=== PATIENT | male | born 1955 | race Caucasian/White ===

== ENCOUNTER 2016-11-22 19:46 | Inpatient (IN) | payer OTHER ==
[~2016-11-22] VITALS: Ht 182.9 cm; Wt 83.6 kg
[2016-11-22 20:05] VITALS: BP 114/60; PULSE 103; RESP 18; O2SAT 99
[2016-11-22 21:55] LABS: BASOPHILS % (AUTO) 0.2 % (0-3); EOSINOPHILS % (AUTO) 0 % (0-5); MONOCYTES % (AUTO) 3.3 % (4-12); Mean Corpuscular Hemoglobin 30.9 pg (27.0-35.0); NEUTROPHILS % (AUTO) 91.6 % (40-74); Platelet Count 262 bil/L (150-400)
--- NOTE | 2016-11-22 22:04 | ED.REPORT ---
HPI-General Illness Date of Service Nov 22, 2016 ED Provider: Jamarcus Metzger DO A 61 year old male with a history of diabetes presents to the ED accompanied by his with diarrhea onset two days ago. Associated symptoms include nausea, vomiting, shakiness, chills, dizziness, weakness, and confusion. His blood sugar was 450 at 0900 at Urgent Care today. The patient recently began taking new medication for his prostate, which has caused diarrhea in the past. He denies cough or pain currently. Nursing Notes Stated Complaint: DIABETIC/ DIZZINESS Chief Complaint: General Complaint Nursing Notes Reviewed: Yes Allergies: Coded Allergies: Sulfa (Sulfonamide Antibiotics) (Verified Allergy, Unknown, 11/22/16) Scheduled Arginine (Arginine) 500 Mg Tablet 500 MG PO DAILY Aspirin (Aspirin) 81 Mg Tablet 243 MG PO DAILY Astragalus Root (Astragalus Root) 1 Gm Powder 1 GM MC DAILY Insulin Glargine (Lantus U100 Insulin Vial) 100 Unit/Ml Vial 15-20 UNIT SUBQ HS Insulin Lispro (HumaLOG U100 Insulin Pen) 100 Unit/1 Ml Insuln.pen 15-20 UNIT SUBQ ACHS Blood Sugar Lispro Correction <151 0 units 151-175 1 unit 176-200 2 units 201-225 3 units 226-250 4 units 251-275 5 units 276-300 6 units 301-325 7 units 326-350 8 units 351-375 9 units 376-400 10 units >400 12 units Check blood sugars before meals and at bedtime. Use correction factor only before meals. General Time Seen by MD: 21:42 Chief Complaint Diarrhea Hx Obtained From: Patient Arrived By: Walk-in Sudden in Onset?: Yes Onset Occurred: 2 days ago Symptom Duration: Since onset Severity: Current: No pain currently Severity: Maximum: No pain Associated with: Reports: Nausea, Vomiting, Denies: Fever Pertinent Negative: Relieved by nothing Context Related History: Reports Diabetes mellitus Recent Healthcare: No recent doctor visit Similar Sx Previous: Yes Past Medical History Past Medical History Diabetes type 1 Past Surgical History Right hip surgery Smoking History Unknown if Ever Smoker Social History Other Social History: Good social support, Ambulatory Status Independent Review of Systems Full Review of Systems Constitutional: Reports: Chills, Denies: Fever Respiratory: Denies: Non-productive cough GI: Reports: Diarrhea, Nausea, Vomiting Neurologic: Reports: Confusion, Dizziness, Shaking, Weakness Complete sys rev & neg: except as marked. Physical Exam Vital Signs Vital Signs Date Time Temp Pulse Resp B/P Pulse Ox O2 Delivery O2 Flow Rate FiO2 11/23/16 04:29 36.7 88 17 103/59 100 Room Air 11/23/16 03:56 36.3 93 18 107/53 98 Room Air 11/23/16 01:04 98 16 113/58 98 Room Air 11/22/16 20:05 36.9 103 18 114/60 99 Initial VS: Reviewed Head / Eyes: Atraumatic, Normocephalic Neck: Supple, Full range of motion Respiratory: Breath sounds normal, Clear to auscultation, No respiratory distress Cardiovascular: Regular rate & rhythm, Heart sounds normal Skin: Warm, Dry, No cyanosis Neurologic: Alert, Oriented, Nonfocal Psychiatric: Mood/affect normal, Behavior normal, Normal thought content General/Constitutional: Awake, Alert, No acute distress ENT: Airway patent Mouth: Positive: Mucous membranes dry Interpretation & Diagnostics Lab Results Interpretation Result Diagram: 11/23/16 0500 11/23/16 1350 Test 11/22/16 21:20 11/22/16 23:54 11/23/16 04:01 Total Bilirubin 0.8mg/dL (0.0-1.2) Aspartate Amino Transf (AST/SGOT) 35U/L (0-50) Alanine Aminotransferase (ALT/SGPT) 44U/L (0-44) Alkaline Phosphatase 192U/L (25-160) Troponin T < 0.010ug/L (0.0-0.011) Total Protein 7.8g/dL (6.4-8.4) Albumin 3.8g/dL (3.4-5.0) Urine Color Yellow (YELLOW) Urine Appearance Clear (CLEAR,HAZY) Urine pH 5.5 (5.0-8.0) Urine Specific [place] 1.020 (1.003-1.035) Urine Protein Negativemg/dL (NEG,TRACE) Urine Glucose (UA) >1000mg/dL (NEGATIVE) Urine Ketones >80mg/dL (NEGATIVE) Urine Occult Blood Negative (NEGATIVE) Urine Nitrite Negative (NEGATIVE) Urine Bilirubin Negative (NEGATIVE) Urine Urobilinogen Normalmg/dL (NORMAL) Urine Leukocyte Esterase Negative (NEGATIVE) Urine RBC 0-2/hpf (0-2) Urine WBC 0-5/hpf (0-5) Urine Epithelial Cells Few/hpf (NONE-MOD) Urine Crystals None seen (NONE SEEN) Urine Bacteria Few/hpf (NONE-FEW) Urine Hyaline Casts None/lpf (NONE) Urine Granular Casts None seen (NONE SEEN) Urine Waxy Casts None seen (NONE SEEN) Urine Red Blood Cell Casts None seen (NONE SEEN) Urine White Blood Cell Casts None seen (NONE SEEN) Urine Mucus None seen (None Seen) Urine Trichomonas None seen (NONE SEEN) Urine Yeast None (NONE SEEN) Urinalysis Comment None Urine Culture Reflexed Not indicated Ketones 1:8 ECG Interpretation ECG Interpretation: Sinus rhythm rate 99 Prolonged QT interval Nonspecific ST changes Time: 22:25 Interpreted by: ED physician X-Ray Chest Interpretation Chest Xray Interpretation: Normal chest x-ray View: Portable, 1 view Interpretation / Wet Read by: Wet read ED physician Re-Eval/Medical Decision Med Decision/Clinical Course 61-year-old insulin-dependent diabetic presents with diarrhea and dehydration. He has had diarrhea for a couple of daysjust not felt well. On examination he was clinically dry. He was found to have hyperglycemia with an anion gap and no ketosis. He was fluid resuscitated and his lactic acid improved. His anion gap however worse and so therefore he was started on IV insulin as well as continue fluids. Stool studies have been sent down. I am suspicious for possible C. difficile results of this in the morning. Case discussed with our hospitalist and Felix was accepted for admission. Time of Eval: 02:54 Patient Status: Condition improved Re-Evaluation/Progress Note: Discussed with patient x-ray results, diagnosis, and plan for admit. Patient agrees with plan for care and all questions were addressed. Consultation #1: Referral / Consult Name: Shayy Moya MD Consulted With: Hospitalist Call Returned at: 01:54 Licensed Tax Consultant: Agrees with eval, Agrees with plan Note: Will admit if blood sugars remain elevated. Consultation #2: Referral / Consult Name: Shayy Moya MD Consulted With: Hospitalist Call Returned at: 03:03 Licensed Tax Consultant: Agrees with eval, Agrees with plan, Accepts admit Note: Discussed lab results Counseled Regarding: Diagnosis, Need for admission Discharge & Departure Primary Impression: Diarrhea Additional Impressions: Dehydration Hyperglycemia Disposition: ADMITTED TO HOSPITAL Discharge Condition All VS Reviewed: Yes Condition: Stable Referrals: NOPCP (PCP) [facility] Scribe Attestation Portions of this note were transcribed by Alma Delia Dela Cruz. Dr. Yassine Coombs, personally performed the history, physical exam, and medical decision-making; I reviewed and confirmed the accuracy of the information in the transcribed note. Signed by: Rossy Stearns, 11/23/2016, 03:27 copies to: [facility] Jamarcus Metzger DO Nov 22, 2016 22:04 ALMA DELIA DELA CRUZ Nov 22, 2016 22:08 Referral / Consult Name: Shayy Moya MD Consulted With: Hospitalist Call Returned at: 01:54 Licensed Tax Consultant: Agrees with eval, Agrees with plan Note: Will admit if blood sugars remain elevated. Consultation #2: Referral / Consult Name: Shayy Moya MD Consulted With: Hospitalist Call Returned at: 03:03 Licensed Tax Consultant: Agrees with eval, Agrees with plan, Accepts admit Note: Discussed lab results Counseled Regarding: Diagnosis, Need for admission Discharge & Departure Primary Impression: Diarrhea Additional Impressions: Dehydration Hyperglycemia Disposition: ADMITTED TO HOSPITAL Discharge Condition All VS Reviewed: Yes Condition: Stable Referrals: NOPCP (PCP) [facility] Scribe Attestation Portions of this note were transcribed by Alma Delia Dela Cruz. Dr. Yassine Coombs, personally performed the history, physical exam, and medical decision-making; I reviewed and confirmed the accuracy of the information in the transcribed note. Signed by: Rossy Stearns, 11/23/2016, 03:27 copies to: [facility] Jamarcus Metzger DO Nov 22, 2016 22:04 ALMA DELIA DELA CRUZ Nov 22, 2016 22:08 Chest Xray Interpretation: Normal chest x-ray View: Portable, 1 view Interpretation / Wet Read by: Wet read ED physician Discharge & Departure Shift Change Sign-Out Response to Therapy: Improved Primary Impression: Contusion of thoracic wall Encounter type: initial encounter Contusion of thoracic wall detail: back wall of thorax Laterality: left Qualified Code: S20.222A - Contusion of left back wall of thorax, initial encounter Disposition: Home Discharge Condition All VS Reviewed: Yes Condition: Stable Patient Instructions: Contusions in Adults (ED) Referrals: NOPCP (PCP) [facility] Scribe Attestation Portions of this note were transcribed by Alma Delia Dela Cruz. I, Dr. Metzger, personally performed the history, physical exam, and medical decision-making; I reviewed and confirmed the accuracy of the information in the transcribed note. Jamarcus Metzger DO Nov 22, 2016 22:04 ALMA DELIA DELA CRUZ Nov 22, 2016 22:08 Portions of this note were transcribed by Alma Delia Dela Cruz. I, Dr. Metzger, personally performed the history, physical exam, and medical decision-making; I reviewed and confirmed the accuracy of the information in the transcribed note. Jamarcus Metzger DO Nov 22, 2016 22:04 ALMA DELIA DELA CRUZ Nov 22, 2016 22:08
[2016-11-22] MEDS: 0.9% Sodium Chloride 1,000 ML IV SCH (23:37)
[2016-11-23] VITALS (11 sets, daily range): BP systolic 94–113; BP diastolic 50–63; PULSE 77–98; RESP 10–19; O2SAT 97–100
[2016-11-23 00:23] LABS: APPEARANCE,URINE CLEAR (CLEAR,HAZY); COLOR,URINE YELLOW (YELLOW); OCCULT BLOOD,URINE NEGATIVE (NEGATIVE); PH,URINE 5.5 (5.0-8.0); UROBILINOGEN,URINE NORMAL (NORMAL)
[2016-11-23] MEDS ORDERED: 0.9% Sodium Chloride 1,000 ML IV ONE (00:55)
[2016-11-23] MEDS ORDERED: Insulin LISPRO 300 Unit/3 mL Inj SUBQ ONE (02:15)
[2016-11-23] MEDS ORDERED: Insulin Human REGular 100 Units/100 mL NS IV SCH ×2 (03:50)
[2016-11-23] MEDS ORDERED: Ondansetron 2 mg/mL 2 mL Inj IVPUSH PRN ×2 (03:55→05:30)
[2016-11-23] MEDS ORDERED: Polyethylene Glycol (PEG) 17 Gm Powder PO PRN (03:55)
[2016-11-23] MEDS ORDERED: Alum-Mag Hydrox-Simeth 30 mL Suspension PO PRN (03:55)
--- NOTE | 2016-11-23 04:42 | PCM.HPMED ---
Subjective Date of Service Nov 23, 2016 Primary Provider: Admitting Physician: Primary Care Physician: Megan Attending Physician: Chief Complaint: Diarrhea, dehydration History of Present Illness: Felix is a 61 yo M with history of T1DM who presents from urgent care for evaluation of acute diarrhea and hyperglycemia. Patient reports that his diarrhea began abruptly 2 days ago. He reports he suddenly felt weak and diaphoretic, then had watery BMs all day. He denies any dark or bloody stool, denies any abdominal pain. He endorses feeling feverish, having chills, mild dizziness, and some nausea/vomiting. He has not had any sick contacts, and his girlfriend who lives with him has not had any symptoms. He lives in a house here in [facility] and has not traveled anywhere recently. He went to the for evaluation today and was found to be hyperglycemic in the 350s. In the ED, he was mildly tachycardic with pulse of 102, but BP and saturations were wnl. His CBC was remarkable for WBC of 12.8 and neutrophil of 91.6%. His CMP was pertinent for Na - 129, Cl - 89, and Bicarb of 16 and glucose of 526. His Lactate was mildy elevated at 2.8. On further questioning, patient reports that he has a history of enlarged prostate and recently had a UTI 3 weeks ago. He reports that he has been prescribed new medications in the last 2 weeks and thinks his diarrhea may be related to this. His prior PCP is Dr. Sethi at the [facility] in [place]. He has had diabetes since he was 10 and is currently using 15-20 units of Lantus at night but is unsure of his Humalog sliding scale. He just moved to a month ago. Review of Systems: 12 Point ROS negative except as stated in HPI Allergies Coded Allergies: Sulfa (Sulfonamide Antibiotics) (Verified Allergy, Unknown, 11/22/16) [facility] Reports he had a 1 heart stent placed in 2005 at [facility] History of HIatal Hernia and acid reflux T1DM Surgical History Right hip fracture status post anni repair Bilateral meniscus repair Family History Noncontributory Social History Hx Alcohol Use: No Hx Substance Use: No Smoking Status: Unknown if Ever Smoker Exam Vital Signs Vital Sign - Last Date Time Temp Pulse Resp B/P Pulse Ox O2 Delivery O2 Flow Rate FiO2 11/23/16 01:04 98 16 113/58 98 Room Air 11/22/16 20:05 36.9 Intake and Output 11/22/16 11/22/16 11/23/16 Cumulative From/Thru 15:00 23:00 07:00 11/22/16 20:05 - 11/23/16 01:04 Intake Total 2000 ml 2000 ml Balance 2000 ml 2000 ml Intake IV Total 2000 ml 2000 ml Exam Gen: Well developed male in NAD HEENT: Sclera non-icteric, Oropharynx non-erythematous, oral mucosa dry, PERRL Neck: Soft, nontender CV: RRR with systolic murmur and occasional PVCs Resp: CTAB, no w/r/c Abd: Soft, nontender, normoactive BS MSK: normal gait, MS grossly intact and equal Neuro: Alert and oriented, light sensation grossly intact Psych: Appropriate mood and affect Lab and Diagnostics Labs Laboratory Tests 72 Hours Test 11/22/16 21:20 11/22/16 23:54 11/23/16 00:00 11/23/16 03:10 White Blood Count 12.8th/mm3 (3.8-10.1) Red Blood Count 4.34mil/mm3 (4.40-5.80) Hemoglobin 13.4g/dL (13.8-17.2) Hematocrit 40.8% (41.0-50.0) Mean Corpuscular Volume 94.0fL (81-100) Mean Corpuscular Hemoglobin 30.9pg (27.0-35.0) Mean Corpuscular Hemoglobin Concent 32.8% (32.0-37.0) Red Cell Distribution Width 14.0% (12.3-15.4) Platelet Count 262bil/L (150-400) Neutrophils (%) (Auto) 91.6% (40-74) Lymphocytes (%) (Auto) 4.8% (14-46) Monocytes (%) (Auto) 3.3% (4-12) Eosinophils (%) (Auto) 0% (0-5) Basophils (%) (Auto) 0.2% (0-3) Sodium Level 129mEq/L (134-144) 132mEq/L (134-144) Potassium Level 4.3mEq/L (3.5-5.2) 4.6mEq/L (3.5-5.2) Chloride Level 89mEq/L (97-108) 96mEq/L (97-108) Carbon Dioxide Level 16mmol/L (18-29) 10mmol/L (18-29) Blood Urea Nitrogen 17mg/dL (8-27) 18mg/dL (8-27) Creatinine 0.92mg/dL (0.76-1.27) 0.87mg/dL (0.76-1.27) Estimat Glomerular Filtration Rate 88mL/min (>59) 94mL/min (>59) Glucose Level 526mg/dL (60-99) 476mg/dL (60-99) Calcium Level 9.1mg/dL (8.5-10.1) 8.1mg/dL (8.5-10.1) Total Bilirubin 0.8mg/dL (0.0-1.2) Aspartate Amino Transf (AST/SGOT) 35U/L (0-50) Alanine Aminotransferase (ALT/SGPT) 44U/L (0-44) Alkaline Phosphatase 192U/L (25-160) Troponin T < 0.010ug/L (0.0-0.011) Total Protein 7.8g/dL (6.4-8.4) Albumin 3.8g/dL (3.4-5.0) Ketones Negative (Negative) Urine Color Yellow (YELLOW) Urine Appearance Clear (CLEAR,HAZY) Urine pH 5.5 (5.0-8.0) Urine Specific [place] 1.020 (1.003-1.035) Urine Protein Negativemg/dL (NEG,TRACE) Urine Glucose (UA) >1000mg/dL (NEGATIVE) Urine Ketones >80mg/dL (NEGATIVE) Urine Occult Blood Negative (NEGATIVE) Urine Nitrite Negative (NEGATIVE) Urine Bilirubin Negative (NEGATIVE) Urine Urobilinogen Normalmg/dL (NORMAL) Urine Leukocyte Esterase Negative (NEGATIVE) Urine RBC 0-2/hpf (0-2) Urine WBC 0-5/hpf (0-5) Urine Epithelial Cells Few/hpf (NONE-MOD) Urine Crystals None seen (NONE SEEN) Urine Bacteria Few/hpf (NONE-FEW) Urine Hyaline Casts None/lpf (NONE) Urine Granular Casts None seen (NONE SEEN) Urine Waxy Casts None seen (NONE SEEN) Urine Red Blood Cell Casts None seen (NONE SEEN) Urine White Blood Cell Casts None seen (NONE SEEN) Urine Mucus None seen (None Seen) Urine Trichomonas None seen (NONE SEEN) Urine Yeast None (NONE SEEN) Urinalysis Comment None Urine Culture Reflexed Not indicated Lactic Acid Level 2.8mmol/L (0.4-2.0) 2.2mmol/L (0.4-2.0) Test 11/23/16 04:01 11/23/16 05:00 Ketones 1:8 White Blood Count 10.7th/mm3 (3.8-10.1) Red Blood Count 3.92mil/mm3 (4.40-5.80) Hemoglobin 12.0g/dL (13.8-17.2) Hematocrit 37.0% (41.0-50.0) Mean Corpuscular Volume 94.4fL (81-100) Mean Corpuscular Hemoglobin 30.6pg (27.0-35.0) Mean Corpuscular Hemoglobin Concent 32.4% (32.0-37.0) Red Cell Distribution Width 13.7% (12.3-15.4) Platelet Count 257bil/L (150-400) Neutrophils (%) (Auto) 90.3% (40-74) Lymphocytes (%) (Auto) 5.9% (14-46) Monocytes (%) (Auto) 3.5% (4-12) Eosinophils (%) (Auto) 0% (0-5) Basophils (%) (Auto) 0.2% (0-3) Sodium Level 135mEq/L (134-144) Potassium Level 4.0mEq/L (3.5-5.2) Chloride Level 99mEq/L (97-108) Carbon Dioxide Level 12mmol/L (18-29) Blood Urea Nitrogen 18mg/dL (8-27) Creatinine 0.91mg/dL (0.76-1.27) Estimat Glomerular Filtration Rate 89mL/min (>59) Glucose Level 369mg/dL (60-99) Calcium Level 8.6mg/dL (8.5-10.1) Result Diagram: 11/22/16211911/22/162119 Assessment & Plan 61 yo M with history of T1DM presents for acute diarrhea and Hyperglycemia. His hyperglycemia and dehydration is likely due to his diarrhea. His UA did not show any ketones. Acute Diarrhea -Likely an infectious diarrhea -Stool PCR pending Dehydration -Secondary to Acute Diarrhea -Received 2 L of NS in the ED, but still looks dehydrated -Will continue IVF replenishment. Hyperglycemia -Likely due to T1DM and acute diarrhea. Blood ketones were initially negative, so a non-DKA insulin protocol was initiated. A second Blood Ketone returned positive, so patient was switched to CCU status and started on DKA insulin drip protocol. ABG still pending. Anion gap at start of DKA protocol was 26. T1DM, POA -Patient reports he is on 15-20 units of Lantus at night but is somewhat unsure about his Humalog s/s. -Recommend Med rec with patient's former pharmacy, which is [facility] in [place], [place] Pain Evaluation: Adequate Pain Control VTE Prophylaxis: Sub-Q Enoxaparin Resuscitation Status: CPR: Attempt Resuscitation Attending Statement Pt seen and examined by myself and agree with above plan. Marvin Fisher DO Nov 23, 2016 03:13 Shayy Moya MD Nov 23, 2016 06:35
[2016-11-23 05:07] LABS: BASOPHILS % (AUTO) 0.2 % (0-3); EOSINOPHILS % (AUTO) 0 % (0-5); MONOCYTES % (AUTO) 3.5 % (4-12); Mean Corpuscular Hemoglobin 30.6 pg (27.0-35.0); Mean Corpuscular Volume 94.4 fL (81-100); NEUTROPHILS % (AUTO) 90.3 % (40-74); Platelet Count 257 bil/L (150-400)
[2016-11-23] MEDS ORDERED: 0.9% Sodium Chloride 1,000 ML IV SCH (05:30)
[2016-11-23] MEDS ORDERED: Senna-Docusate 8.6-50 mg Tablet PO PRN (05:30)
--- NOTE | 2016-11-23 06:00 | NUR ---
Admit note Pt admitted to ER # 12 an inpatient CCU status. Admission assessment and screening completed. VSS. POC reviewed and discussed with pt and he verbalizes understating. Pt is appropriate and cooperative with care. Insulin Non-DKA D/C and Insulin DKA initiated due to positive ketones. ER RNs managing Insulin grtt at this time. No overt complications noted.
--- NOTE | 2016-11-23 06:19 | ABG ---
DateTimeAnalyzed 06:14:00 -_ pH ____7.356 - 7.350 7.450 pCO2 ___30.5__ -mmHg 35.0 45.0 pO2 ___80.5__ -mmHg 70.0 100 HCO3- ___16.7__ -mmol/L 22.0 26.0 ABE ___-7.4__ -mmol/L -2.0 2.0 tHb ___11.0__ -g/dL 12.0 18.0 O2Hb ___93.6__ -% 95.0 COHb ____1.1__ -% 1.5 MetHb ____1.2__ -% 0.4 1.5 sO2 ___95.8__ -% 25.0 FIO2 ___21.0__ -% Drawn By MD - Date/Time Notified____ 06:18:00 -_ Notified By MD - Notified Whom RN L.RISKE - B 750 -mmHg tO2 ___14.6__ -Vol% Moises test N/A -
--- NOTE | 2016-11-23 06:35 | NUR ---
Received report from Silvio Hines RN. After receiving am labs at 0500. Patient was shown to be in DKA. Physician was notified and new orders were received. Second IV site was placed to right forearm. PAtient was notified of plan of care. VSS.
--- NOTE | 2016-11-23 07:56 | DRSVH ---
PROCEDURE: X-RAY CHEST ONE VIEW, PORTABLE ([id number]) INDICATIONS: fever TECHNIQUE: One view of the chest was acquired. COMPARISON: None. FINDINGS: Surgical changes and devices: None. Lungs and pleura: No pleural effusions or pneumothorax. Lungs are clear. Mediastinum: Mediastinal contours appear normal. Heart size is normal. Bones and chest wall: No suspicious bony lesions. Overlying soft tissues appear unremarkable. Old r ight sixth rib fracture noted. IMPRESSION: No acute cardiopulmonary disease process. Dictated by: Zainab Nieto MD, PhD on 11/23/2016 at 7:54 Approved by: Zainab Nieto MD, PhD on 11/23/2016 at 7:54
[2016-11-23] MEDS ORDERED: Pantoprazole 4 mg/mL 10 mL Inj IVPUSH SCH (08:30)
[2016-11-23] MEDS ORDERED: Potassium Chloride Inj 40 MEQ in 0.9% Sodium Chloride 1,000 ML IV SCH (08:59)
[2016-11-23] MEDS ORDERED: ASPI-973 PO (09:21)
[2016-11-23] MEDS ORDERED: INSU100V7 SUBQ (09:21)
[2016-11-23] MEDS ORDERED: INSU100I18 SUBQ (09:21)
[2016-11-23] MEDS ORDERED: ARGI500T PO (09:21)
[2016-11-23] MEDS ORDERED: ASTR1POW MC (09:22)
[2016-11-23] MEDS ORDERED: POTASSIUM CHLORIDE IV SCH ×2 (09:55→12:45)
[2016-11-23] MEDS ORDERED: NACL IV SCH ×2 (09:55→12:45)
[2016-11-23] MEDS ORDERED: DEXTROSE IV SCH ×2 (09:55→12:45)
[2016-11-23] MEDS: Vancomycin 125 mg Oral Capsule PO SCH ×3 (11:45→22:28)
--- NOTE | 2016-11-23 14:11 | NUR ---
Social Work: Screening Data: Pt is a 61 y/o male admitted for diarrhea hyperglycema dehydration. Pt's PCP is not listed. Pt's insurance is [employer]. EMR reviewed. No d/c planning needs anticipated at this time. FORM SETTER/DRIVER will continue to follow if needs arise. Assessment: Pt who is independent at baseline. Plan: Pt will d/c home via POV when medically stable. No d/c planning needs anticipated at this time. FORM SETTER/DRIVER will continue to follow if needs arise. NIXON Eng
[2016-11-23] MEDS: Potassium Chloride Inj 40 MEQ in 0.9% Sodium Chloride 1,000 ML IV SCH ×2 (14:22→22:30)
[2016-11-23] MEDS ORDERED: Vancomycin 125 mg Oral Capsule PO SCH (14:30)
--- NOTE | 2016-11-23 15:07 | PCM.PNMED ---
Subjective Date of Service Nov 23, 2016 Subjective Felix Lanier is a 61 -year-old male with past medical history significant for type I diabetes who presents with diarrhea and hyperglycemia. Admitted for diabetic ketoacidosis. Hospital day 1. Overnight: No acute events. Today: Patient states he is feeling better continues to have some nausea and abdominal discomfort. He denies any headache, dizziness, fever, chills, chest pain, shortness of breath, dysuria. Patient continues to have diarrhea. Exam Vital Signs Vital Sign - Last Date Time Temp Pulse Resp B/P Pulse Ox O2 Delivery O2 Flow Rate FiO2 11/23/16 12:00 36.9 78 18 101/56 100 Room Air Intake and Output 11/22/16 11/22/16 11/23/16 Cumulative From/Thru 15:00 23:00 07:00 11/22/16 20:05 - 11/23/16 06:30 Intake Total 4142 ml 4142 ml Output Total 500 ml 500 ml Balance 3642 ml 3642 ml Intake IV Total 4142 ml 4142 ml Output Urine Total 500 ml 500 ml # Bowel Movements 1 1 Exam General: No acute distress, well-developed, well-nourished HEENT: Normocephalic, atraumatic. Neck: No jugular venous distension. No lymphadenopathy or thyromegaly. Cardiovascular: Regular rate and rhythm with no murmurs, rubs, or gallops appreciated Pulmonary: Clear to auscultation bilaterally with no crackles, wheezes, or rhonchi. Normal respiratory effort with no use of accessory muscles. Abdomen: Bowel tones hyperactive. Soft, nontender, nondistended. Neurological: Cranial nerves grossly intact. Psychiatric: Normal mood and affect. Alert and oriented to person, place, and time. Lab and Diagnostics Result Diagram: 11/23/16 0500 11/23/16 1350 Microbiology C. difficile positive X-Rays, CTs and MRIs X-RAY CHEST ONE VIEW, PORTABLE IMPRESSION: No acute cardiopulmonary disease process. Dictated by: Zainab Nieto MD, PhD on 11/23/2016 at 7:54 Approved by: Zainab Nieto MD, PhD on 11/23/2016 at 7:54 Assessment & Plan Felix Lanier is a 61 -year-old male with past medical history significant for type I diabetes who presents with diarrhea and hyperglycemia. Admitted for diabetic ketoacidosis. Hospital day 1. 1. Diabetic ketoacidosis, present on admission, active. - Likely secondary to diarrhea from C. difficile infection. - On admission anion gap 26, glucose 526, and potassium 4.3. - Currently glucose 128 and anion gap 15. - DKA protocol. 2. Clostridium difficile, present on admission, active. - Stool culture positive for C. difficile. - Vancomycin every 6 hours started 11/23/16. - Fluids as above and will continue to monitor status. 3. Type I diabetes, present on admission, chronic. - Patient reports she takes Lantus 15-20 units nightly and Humalog with meals. - Patient reports hemoglobin A1c was 7.5-8 - Hemoglobin A1c pending. 4. Lactic acidosis, present on admission, resolved. - Lactic acid initially 2.8 on admission. - Aggressive fluid resuscitation initiated in ED. - Lactic acid currently 1.4. Disposition: Patient's discharge pending anion gap correction and glucose control. Discharge home with no needs. Pain Evaluation: Adequate Pain Control GI Prophylaxis: H2 rogerio VTE Prophylaxis: Sub-Q Enoxaparin Resuscitation Status: CPR: Attempt Resuscitation Attending Statement The patient was seen and examined together with Dr. Mccarthy on 11/23/2016 and I agree with the history, exam and plan as outlined in the note above. . SAV MCCARTHY DO Nov 23, 2016 15:07 Felix Montes De Oca MD Nov 24, 2016 12:26
[2016-11-23] MEDS: Insulin GLARgine 100 Unit/mL Syringe SUBQ SCH (21:22)
[2016-11-23] MEDS: 0.9% Sodium Chloride 1,000 ML IV SCH (22:28)
[2016-11-24] VITALS: BP 117/62; PULSE 76; RESP 21; O2SAT 99
[2016-11-24 03:48] LABS: BASOPHILS % (AUTO) 0.3 % (0-3); EOSINOPHILS % (AUTO) 0.1 % (0-5); MONOCYTES % (AUTO) 8.4 % (4-12); Mean Corpuscular Hemoglobin 30.7 pg (27.0-35.0); Mean Corpuscular Volume 93.7 fL (81-100); Platelet Count 205 bil/L (150-400)
[2016-11-24 04:00] VITALS: BP 101/83; PULSE 80; RESP 15; O2SAT 95
[2016-11-24 04:08] LABS: Magnesium 1.7 mg/dL (1.6-2.6); Phosphorus 1.2 mg/dL (2.5-4.9)
[2016-11-24] MEDS: Potassium Chloride Inj 40 MEQ in 0.9% Sodium Chloride 1,000 ML IV SCH ×2 (05:05→09:50)
--- NOTE | 2016-11-24 05:24 | NUR ---
Diarrhea, nutrition Vs as noted. Incontinent of stool once then able to get to bedside commode for 6 small liquid green stools. Ate 100% of dinner. HS lantus 20units given, Insulin gtt turned off with blood glucose 93 and DKA protocol stopped 2129. Remains alert and oriented. Conversing appropriately. IVF NS + 40meq kcl at 125/h.
[2016-11-24] MEDS: Vancomycin 125 mg Oral Capsule PO SCH ×4 (06:30→21:12)
[2016-11-24] MEDS ORDERED: Sodium Phosphate Inj 40 MEQ in Dextrose 5% 500 ML IV ONE (06:55)
[2016-11-24] MEDS: Pantoprazole 4 mg/mL 10 mL Inj IVPUSH SCH (07:32)
[2016-11-24 08:30] VITALS: BP 102/58; PULSE 74; RESP 19; O2SAT 98
--- NOTE | 2016-11-24 09:20 | NUR ---
Social Work: Screen D: Per EMR review, pt is a 61 year old male admitted for diarrhea, hyperglycemia, dehydration. Pt is [employer] insurance. PCP is not listed. NOK is [facility], , . Readmit score is moderate, 3/8. Per EMR review, pt lives in [place] with his spouse. He is I at baseline. Pt was downgraded from CCU and is now in PCC bed. Pt remains I during admission. Per MD notes, pt should have no sw needs at time of discharge. No needs or barriers identified at this time by CHASSIS ENGINEER. A: Pt who is I at baseline. P: Anticipate pt to discharge home via POV once medically stable; CHASSIS ENGINEER to continue to follow and assist with dcp if needed. NIXON Yanes
[2016-11-24] MEDS: Insulin LISPRO 300 Unit/3 mL Inj SUBQ SCH ×3 (10:21→18:16)
--- NOTE | 2016-11-24 11:44 | PCM.PNMED ---
Subjective Date of Service Nov 24, 2016 Subjective Felix Lanier is a 61 -year-old male with past medical history significant for type I diabetes who presents with diarrhea and hyperglycemia. Admitted for diabetic ketoacidosis. Hospital day 2. Overnight: No acute events. DKA protocol discontinued at 2130. 6 loose stools overnight. Today: Patient states he is feeling better continues to have some nausea and abdominal discomfort. He denies any headache, dizziness, fever, chills, chest pain, shortness of breath, dysuria. Patient continues to have frequent loose stools. Exam Vital Signs Vital Sign - Last Date Time Temp Pulse Resp B/P Pulse Ox O2 Delivery O2 Flow Rate FiO2 11/24/16 04:00 80 15 101/83 95 Room Air 11/24/16 00:00 36.8 Intake and Output 11/23/16 11/23/16 11/24/16 Cumulative From/Thru 15:00 23:00 07:00 11/22/16 20:05 - 11/24/16 06:13 Intake Total 2400 ml 2120 ml 8662 ml Output Total 900 ml 1400 ml Balance 2400 ml 1220 ml 7262 ml Intake Oral 200 ml 200 ml IV Total 2400 ml 1920 ml 8462 ml Output Urine Total 900 ml 1400 ml # Bowel Movements 1 Exam General: No acute distress, well-developed, well-nourished HEENT: Normocephalic, atraumatic. Neck: No jugular venous distension. No lymphadenopathy or thyromegaly. Cardiovascular: Regular rate and rhythm with no murmurs, rubs, or gallops appreciated Pulmonary: Clear to auscultation bilaterally with no crackles, wheezes, or rhonchi. Normal respiratory effort with no use of accessory muscles. Abdomen: Bowel tones hyperactive. Soft, nontender, nondistended. Neurological: Cranial nerves grossly intact. Psychiatric: Normal mood and affect. Alert and oriented to person, place, and time. Lab and Diagnostics CMP Test 11/22/16 21:20 11/23/16 05:00 11/23/16 08:00 11/24/16 03:35 Troponin T < 0.010ug/L Hemoglobin A1c 8.1% Lactic Acid Level 1.4mmol/L Sodium Level 137mEq/L Potassium Level 4.3mEq/L Chloride Level 106mEq/L Carbon Dioxide Level 19mmol/L Blood Urea Nitrogen 9mg/dL Creatinine 0.60mg/dL Estimat Glomerular Filtration Rate 145mL/min Glucose Level 201mg/dL Calcium Level 7.9mg/dL Phosphorus Level 1.2mg/dL Magnesium Level 1.7mg/dL Total Bilirubin 0.2mg/dL Aspartate Amino Transf (AST/SGOT) 68U/L Alanine Aminotransferase (ALT/SGPT) 46U/L Alkaline Phosphatase 138U/L Total Protein 5.3g/dL Albumin 2.7g/dL Result Diagram: 11/24/1633411/24/16334 Microbiology C. difficile positive X-Rays, CTs and MRIs X-RAY CHEST ONE VIEW, PORTABLE IMPRESSION: No acute cardiopulmonary disease process. Dictated by: Zainab Nieto MD, PhD on 11/23/2016 at 7:54 Approved by: Zainab Nieto MD, PhD on 11/23/2016 at 7:54 Assessment & Plan Felix Lanier is a 61 -year-old male with past medical history significant for type I diabetes who presents with diarrhea and hyperglycemia. Admitted for diabetic ketoacidosis. Hospital day 2. 1. Diabetic ketoacidosis, present on admission, active. - Likely secondary to diarrhea from C. difficile infection. - On admission anion gap 26, glucose 526, and potassium 4.3. - Anion gap today 12. - DKA protocol discontinued on the evening of 11/23/16. - Restarting home insulin regimen. 2. Clostridium difficile, present on admission, active. - Stool culture positive for C. difficile. - Vancomycin every 6 hours started 11/23/16. - 6 loose stools overnight. Will continue to monitor. - Tolerating diet at this time. Fluids discontinued. Will monitor. 3. Type I diabetes, present on admission, chronic. - Patient reports she takes Lantus 15-20 units nightly and Humalog with meals. - Patient reports hemoglobin A1c was 7.5-8 - Hemoglobin A1c 8.1. - Restarted Lispro 15 units TIDAC. - Restarted Glargine 20 units HS. 4. Lactic acidosis, present on admission, resolved. - Lactic acid initially 2.8 on admission. - Aggressive fluid resuscitation initiated in ED. - Lactic acid currently 1.4. 5. Elevated liver enzymes, uknown chronicty. - AST 68 and ALT 46. - Will repeat tomorrow and obtain outpatient records. - Continue to monitor. Disposition: Patient's discharge pending less then 6 stools in 24 hours. Discharge home with no needs. Pain Evaluation: Adequate Pain Control GI Prophylaxis: H2 rogerio VTE Prophylaxis: Sub-Q Enoxaparin Resuscitation Status: CPR: Attempt Resuscitation Attending Statement The patient was seen and examined together with Dr. Mccarthy on 11/24/2016 and I agree with the history, exam and plan as outlined in the note above. . SAV MCCARTHY DO Nov 24, 2016 06:50 Felix Montes De Oca MD Nov 24, 2016 12:24
--- NOTE | 2016-11-24 14:07 | NUR ---
Arrival to [facility] Patient arrived in WC to [facility] approx 1110. Oriented patient to room. Patient denies pain. Will continue to frequently monitor.
[2016-11-24 17:06] VITALS: BP 113/67; PULSE 83; RESP 19; O2SAT 99
--- NOTE | 2016-11-24 18:35 | NUR ---
Appetite and GI Bowel tones active x 4. Reports good appetite and per patient "back to normal". Denies GI upset or N/V. Continue frequent rounding.
[2016-11-24 20:59] VITALS: BP 105/59; PULSE 72; RESP 18; O2SAT 98
[2016-11-24] MEDS: Insulin GLARgine 100 Unit/mL Syringe SUBQ SCH (21:12)
[2016-11-25 05:10] VITALS: BP 101/60; PULSE 82; RESP 18; O2SAT 98
[2016-11-25] MEDS: Vancomycin 125 mg Oral Capsule PO SCH ×4 (06:34→21:04)
[2016-11-25 06:43] LABS: BASOPHILS % (AUTO) 0.4 % (0-3); EOSINOPHILS % (AUTO) 2.2 % (0-5); MONOCYTES % (AUTO) 11.8 % (4-12); Mean Corpuscular Hemoglobin 30.6 pg (27.0-35.0); NEUTROPHILS % (AUTO) 55.9 % (40-74); Platelet Count 218 bil/L (150-400)
[2016-11-25 06:52] LABS: Magnesium 1.7 mg/dL (1.6-2.6); Phosphorus 2.6 mg/dL (2.5-4.9)
[2016-11-25] MEDS: Insulin LISPRO 300 Unit/3 mL Inj SUBQ SCH ×3 (07:30→16:45)
[2016-11-25] MEDS: Pantoprazole 4 mg/mL 10 mL Inj IVPUSH SCH (08:10)
--- NOTE | 2016-11-25 09:36 | PCM.PNMED ---
Subjective Date of Service Nov 25, 2016 Subjective Felix states that he would like to go home. He is concerned that more medial treatment is going to make him worse as he once was told he needed a cholecystectomy and per the patient he was healed by a stitcher hand. He reports having 3 loose stools in the past 3 hours. Exam Vital Signs Vital Sign - Last Date Time Temp Pulse Resp B/P Pulse Ox O2 Delivery O2 Flow Rate FiO2 11/25/16 05:10 37.0 82 18 101/60 98 Room Air Intake and Output 11/24/16 11/24/16 11/25/16 Cumulative From/Thru 15:00 23:00 07:00 11/22/16 20:05 - 11/25/16 06:59 Intake Total 400 ml 9062 ml Output Total 1400 ml Balance 400 ml 7662 ml Intake Oral 400 ml 600 ml IV Total 8462 ml Output Urine Total 1400 ml # Voids 4 4 # Bowel Movements 3 4 Exam General: Well appearing male sitting on the edge of the bed this morning. No acute distress, well-nourished HEENT: Normocephalic, atraumatic. Moist mucus membranes Cardiovascular: Regular rate and rhythm without murmur, rub, or gallop appreciated. Pulmonary: Good inspiratory effort. No crackles, wheezes, or rhonchi. No use of accessory muscles. Abdomen: Normoactive bowel tones. Soft, nontender, nondistended. No hepatosplenomegaly or mass appreciated Neurological: Cranial nerves grossly intact. Normal speech. Psychiatric: Normal mood and affect. Alert and oriented to person, place, and time. IVs and Medications Medications Reviewed: Medications were reviewed in detail Lab and Diagnostics Result Diagram: 11/25/16 0600 11/25/16 0600 Microbiology C. difficile positive on PCR X-Rays, CTs and MRIs X-RAY CHEST ONE VIEW, PORTABLE IMPRESSION: No acute cardiopulmonary disease process. Dictated by: Zainab Nieto MD, PhD on 11/23/2016 at 7:54 Approved by: Zainab Nieto MD, PhD on 11/23/2016 at 7:54 Assessment & Plan Felix is a 61yo male with type I diabetes who presented to [facility] with diarrhea and hyperglycemia 3 weeks after finishing a course of unknown antibiotic for the treatment of a UTI. Admitted for diabetic ketoacidosis and found to be positive for C difficile. Hospital day #3. 1. Clostridium difficile, present on admission, active. - PCR positive for C. difficile. - Vancomycin PO q6 hours started 11/23/16 with a plan for 14 days of therapy. - 3 loose stools already this morning. Will continue to monitor. - Tolerating diet at this time. IV fluids discontinued. Will monitor. 2. Diabetic ketoacidosis, present on admission, resolved - Secondary to diarrhea from C. difficile infection. - On admission anion gap 26, glucose 526, and potassium 4.3. - Anion gap today 10. - DKA protocol discontinued on the evening of 11/23/16. - Continue home insulin regimen which includes Lantus 20units once daily and nutritional Lispro TID 3. Type I diabetes, present on admission, chronic. - Hemoglobin A1c 8.1. - On home insulin as above 4. Lactic acidosis, present on admission, resolved. - Lactic acid initially 2.8 on admission. - Aggressive fluid resuscitation initiated in ED. - Lactic acid currently 1.4. 5. Elevated liver enzymes of unknown chronicity. - Transaminases initially normal, may be reactive in the setting of C difficile - Continue to monitor. Disposition: Patient's discharge pending less then 6 stools in 24 hours. Discharge home with oral antibiotics. GI Prophylaxis: H2 rogerio VTE Prophylaxis: Sub-Q Enoxaparin VTE Mechanical Devices: Intermittant Pneumatic CD Resuscitation Status: CPR: Attempt Resuscitation Attending Statement The patient was seen and examined together with Dr. Ramachandran on 11/25/2016 and I agree with the history, exam and plan as outlined in the note above. Aleisha Ramachandran DO Nov 25, 2016 09:35 Reyes Carreon MD Nov 26, 2016 10:23
[2016-11-25 12:59] VITALS: BP 98/60; PULSE 79; RESP 16; O2SAT 100
--- NOTE | 2016-11-25 18:31 | NUR ---
hypoglycemic pts bg was 43. no iv access, aware. gave glass of apple juice and chocolate pudding. rechecked bg 86 then pt ate dinner
[2016-11-25 21:07] VITALS: BP 114/68; PULSE 74; RESP 13; O2SAT 97
[2016-11-25] MEDS: Insulin GLARgine 100 Unit/mL Syringe SUBQ SCH (21:25)
--- NOTE | 2016-11-26 04:33 | NUR ---
BS BS at 140, no issues of hypoglycemia, pt aware of BS issues. Will continue to monitor
[2016-11-26 05:33] VITALS: BP 115/68; PULSE 69; RESP 16; O2SAT 96
[2016-11-26] MEDS: Vancomycin 125 mg Oral Capsule PO SCH ×2 (06:18→11:36)
[2016-11-26 07:21] LABS: BASOPHILS % (AUTO) 0.8 % (0-3); EOSINOPHILS % (AUTO) 2.4 % (0-5); MONOCYTES % (AUTO) 8.1 % (4-12); Mean Corpuscular Hemoglobin 30.4 pg (27.0-35.0); Mean Corpuscular Volume 92.8 fL (81-100); NEUTROPHILS % (AUTO) 58.1 % (40-74); Platelet Count 257 bil/L (150-400)
[2016-11-26] MEDS ORDERED: Pantoprazole 40 mg ER24 Tablet PO SCH (07:30)
[2016-11-26] MEDS: Insulin LISPRO 300 Unit/3 mL Inj SUBQ SCH (08:43)
[2016-11-26] MEDS ORDERED: VANC125C3 PO (09:22)
--- NOTE | 2016-11-26 10:33 | PCM.DIMED ---
Aleisha Ramachandran DO 11/26/16 0925: Discharge Instructions Date of Service Nov 26, 2016 Dates of Hospitalization Nov 23, 2016 at 04:44 Discharge Diagnosis Discharge Diagnosis Clostridium difficile, present on admission, active and discharge with therapy Diabetic ketoacidosis, present on admission, resolved - This is secondary to C difficile infection Type I diabetes, present on admission, chronic - Hemoglobin A1c of 8.1% on 11/23/16 Lactic acidosis, present on admission, resolved. Elevated liver enzymes of unknown chronicity and etiology Medication Instructions START 1 capsule of Vancomycin by mouth 4 times daily. This is a 14 day course of antibiotic and based on the number of doses you have already received, you will need to take 11 more days of antibiotics. Continue your previous home medications. Test Results Positive PCR for Clostridium difficile BioFire PCR of stool negative for other infectious agents Diet Diabetic Activity No restrictions Call your provider Fever or Chills, Shortness of breath, Bleeding, Chest pain, Vomitting, Excessive diarrhea, Weakness (unilateral) Patient Instructions Follow-up plan Please call the [facility] on 11/28/16 to schedule an appointment for follow up of this hospitalization, to be seen on 12/05/16. If you are able to establish care with the health care provider your girlfriend has been seen by, you may follow up with them instead if you so desire so long as it is in less than 2 weeks; if you see them instead, please cancel any appointment you may have with the residency clinic. Follow-up Provider: [facility] Follow-up with PCP in: Other (10 days) Reyes Carreon MD 11/27/16 1234: Aleisha Ramachandran DO Nov 26, 2016 09:25 Reyes Carreon MD Nov 27, 2016 12:34
--- NOTE | 2016-11-26 11:14 | NUR ---
Social Work-discharge: Data:EMR Reviewed. Pt is on day 3 of hospitalization for diarrhea per H&P. Pt is medically stable to discharge home today. Per RN notes, pt has been up independent in his room. MD to set up with PCP appointment at [facility]. No other discharge needs identified. Pt's family to provide transport home today. All updated and agreeable to plan. Assessment:Pt who is independent at baseline. Plan:Pt to discharge home today via POV. No discharge needs identified. All updated and agreeable to plan. NIXON English
--- NOTE | 2016-11-26 11:46 | NUR ---
Discharge Pt discharged at this time. All belongings gathered and returned to pt. No IV access or tele. VSS, no complains of increased pain. Hard copy of new script given to pt to fill. Discharge packet printed and reviewed with pt and friend Trevor. Pt declined offer of wheel chair, escorted from [facility] [place] by this RN, steady gait. Pt to be transported home in private vehicle driven by Trevor.
--- NOTE | 2016-11-26 18:06 | PCM.DC.MED ---
Discharge Summary Date of Service Nov 26, 2016 Dates of Hospitalization Date of Hospital Admission Nov 23, 2016 at 04:44 Date of Discharge: Nov 26, 2016 Providers: Admitting Physician: Shayy Moya MD Primary Care Physician: Megan Attending Physician: Shayy Moya MD Diagnosis at Time of Discharge Diagnosis at Time of Discharge Clostridium difficile, present on admission, active and discharge with therapy Diabetic ketoacidosis, present on admission, resolved - This is secondary to C difficile infection Type I diabetes, present on admission, chronic - Hemoglobin A1c of 8.1% on 11/23/16 Lactic acidosis, present on admission, resolved. Elevated liver enzymes of unknown chronicity and etiology Procedures XRay, CTs & MRIs X-RAY CHEST ONE VIEW, PORTABLE IMPRESSION: No acute cardiopulmonary disease process. Dictated by: Zainab Nieto MD, PhD on 11/23/2016 at 7:54 Approved by: Zainab Nieto MD, PhD on 11/23/2016 at 7:54 Brief History Per H&P by Dr Fisher: Felix is a 61 yo M with history of T1DM who presents from urgent care for evaluation of acute diarrhea and hyperglycemia. Patient reports that his diarrhea began abruptly 2 days ago. He reports he suddenly felt weak and diaphoretic, then had watery BMs all day. He denies any dark or bloody stool, denies any abdominal pain. He endorses feeling feverish, having chills, mild dizziness, and some nausea/vomiting. He has not had any sick contacts, and his girlfriend who lives with him has not had any symptoms. He lives in a house here in [facility] and has not traveled anywhere recently. He went to the for evaluation today and was found to be hyperglycemic in the 350s. In the ED, he was mildly tachycardic with pulse of 102, but BP and saturations were wnl. His CBC was remarkable for WBC of 12.8 and neutrophil of 91.6%. His CMP was pertinent for Na - 129, Cl - 89, and Bicarb of 16 and glucose of 526. His Lactate was mildy elevated at 2.8. On further questioning, patient reports that he has a history of enlarged prostate and recently had a UTI 3 weeks ago. He reports that he has been prescribed new medications in the last 2 weeks and thinks his diarrhea may be related to this. His prior PCP is Dr. Sethi at the [facility] in [place]. He has had diabetes since he was 10 and is currently using 15-20 units of Lantus at night but is unsure of his Humalog sliding scale. He just moved to a month ago. The patient's stool BioFire test result was positive PCR for clostridium difficile and he was started on oral vancomycin with reduction in his stooling to his normal number of daily stools in the 24hours prior to discharge. General: Well appearing male sitting up in bed this morning. No acute distress, well-nourished HEENT: Normocephalic, atraumatic. Moist mucus membranes Cardiovascular: Regular rate and rhythm without murmur, rub, or gallop appreciated. Pulmonary: Good inspiratory effort. No crackles, wheezes, or rhonchi. No use of accessory muscles. Abdomen: Normoactive bowel tones. Soft, nontender, nondistended. No hepatosplenomegaly or mass appreciated Neurological: Cranial nerves grossly intact. Normal speech. Psychiatric: Normal mood and affect. Alert and oriented to person, place, and time. Hospital Course The following were addressed during this hospitalization: 1. Clostridium difficile, present on admission, discharged with treatment - PCR positive for C. difficile. - Vancomycin PO q6 hours started 11/23/16 with a plan for 14 days of total therapy. - Prescription for #44 capsules of Vancomycin given to the patient today: Vancomycin 125mg PO 4 times daily for 11 days. - Decreased stooling without further diarrhea prior to discharge - Tolerated a normal diet - IV NS initially given due to volume depletion from diarrhea, discontinued. 2. Diabetic ketoacidosis, present on admission, resolved - Secondary to diarrhea from C. difficile infection. - On admission anion gap 26, glucose 526, and potassium 4.3. - Anion gap today 10 at discharge - DKA protocol discontinued on the evening of 11/23/16. - Home insulin regimen started once the anion gap normalized 3. Type I diabetes, present on admission, chronic. - Hemoglobin A1c 8.1. - Home insulin once #2 above resolved: Lantus 20units once daily and nutritional Lispro TID 4. Lactic acidosis, present on admission, resolved. - Lactic acid initially 2.8 on admission. - Aggressive fluid resuscitation initiated in ED. - Lactic acid decreased on hospital day #2 to 1.4. 5. Elevated liver enzymes of unknown chronicity. - Transaminases initially normal, may be reactive in the setting of C difficile - Recommend outpatient LFTs once the patient has completed the course of Vancomycin Exam Vital Signs (Last) Date Time Temp Pulse Resp B/P Pulse Ox O2 Delivery O2 Flow Rate FiO2 11/26/16 05:33 36.6 69 16 115/68 96 Room Air Exam GENERAL: NAD, Pt laying in bed comfortably HEENT: AT/NC, PERRLA, EOMI, Mucus Membranes are moist CARDIAC: RRR; No M/R/G PULM: CTAB; No wheezes or rhonchi bilaterally ABD: Soft, Nontender, Nondistended, Positive bowel sounds in all quadrants, No Hepatosplenomegaly appreciated NEURO: Alert and oriented x3; Following all commands PSYCH: Normal mood and affect Test 11/22/16 21:20 11/22/16 23:54 11/23/16 04:01 11/23/16 05:00 Troponin T < 0.010ug/L (0.0-0.011) Urine Color Yellow (YELLOW) Urine Appearance Clear (CLEAR,HAZY) Urine pH 5.5 (5.0-8.0) Urine Specific [place] 1.020 (1.003-1.035) Urine Protein Negativemg/dL (NEG,TRACE) Urine Glucose (UA) >1000mg/dL (NEGATIVE) Urine Ketones >80mg/dL (NEGATIVE) Urine Occult Blood Negative (NEGATIVE) Urine Nitrite Negative (NEGATIVE) Urine Bilirubin Negative (NEGATIVE) Urine Urobilinogen Normalmg/dL (NORMAL) Urine Leukocyte Esterase Negative (NEGATIVE) Urine RBC 0-2/hpf (0-2) Urine WBC 0-5/hpf (0-5) Urine Epithelial Cells Few/hpf (NONE-MOD) Urine Crystals None seen (NONE SEEN) Urine Bacteria Few/hpf (NONE-FEW) Urine Hyaline Casts None/lpf (NONE) Urine Granular Casts None seen (NONE SEEN) Urine Waxy Casts None seen (NONE SEEN) Urine Red Blood Cell Casts None seen (NONE SEEN) Urine White Blood Cell Casts None seen (NONE SEEN) Urine Mucus None seen (None Seen) Urine Trichomonas None seen (NONE SEEN) Urine Yeast None (NONE SEEN) Urinalysis Comment None Urine Culture Reflexed Not indicated Ketones 1:8 Hemoglobin A1c 8.1% (4.8-5.6) Test 11/23/16 08:00 11/25/16 06:00 11/26/16 06:34 Lactic Acid Level 1.4mmol/L (0.4-2.0) Phosphorus Level 2.6mg/dL (2.5-4.9) Magnesium Level 1.7mg/dL (1.6-2.6) White Blood Count 5.3th/mm3 (3.8-10.1) Red Blood Count 3.88mil/mm3 (4.40-5.80) Hemoglobin 11.8g/dL (13.8-17.2) Hematocrit 36.0% (41.0-50.0) Mean Corpuscular Volume 92.8fL (81-100) Mean Corpuscular Hemoglobin 30.4pg (27.0-35.0) Mean Corpuscular Hemoglobin Concent 32.8% (32.0-37.0) Red Cell Distribution Width 13.8% (12.3-15.4) Platelet Count 257bil/L (150-400) Neutrophils (%) (Auto) 58.1% (40-74) Lymphocytes (%) (Auto) 30.4% (14-46) Monocytes (%) (Auto) 8.1% (4-12) Eosinophils (%) (Auto) 2.4% (0-5) Basophils (%) (Auto) 0.8% (0-3) Sodium Level 139mEq/L (134-144) Potassium Level 3.6mEq/L (3.5-5.2) Chloride Level 100mEq/L (97-108) Carbon Dioxide Level 28mmol/L (18-29) Blood Urea Nitrogen 6mg/dL (8-27) Creatinine 0.55mg/dL (0.76-1.27) Estimat Glomerular Filtration Rate 160mL/min (>59) Glucose Level 177mg/dL (60-99) Calcium Level 8.8mg/dL (8.5-10.1) Total Bilirubin 0.4mg/dL (0.0-1.2) Aspartate Amino Transf (AST/SGOT) 84U/L (0-50) Alanine Aminotransferase (ALT/SGPT) 78U/L (0-44) Alkaline Phosphatase 204U/L (25-160) Total Protein 6.4g/dL (6.4-8.4) Albumin 3.4g/dL (3.4-5.0) Microbiology Results C. difficile positive on PCR Discharge Medications Discharge Medications Arginine (Arginine) 500 Mg Tablet 500 MG PO DAILY (Reported) Aspirin (Aspirin) 81 Mg Tablet 243 MG PO DAILY (Reported) Astragalus Root (Astragalus Root) 1 Gm Powder 1 GM MC DAILY (Reported) Insulin Glargine (Lantus U100 Insulin Vial) 100 Unit/Ml Vial 15-20 UNIT SUBQ HS (Reported) Insulin Lispro (HumaLOG U100 Insulin Pen) 100 Unit/1 Ml Insuln.pen 15-20 UNIT SUBQ ACHS (Reported) Blood Sugar Lispro Correction <151 0 units 151-175 1 unit 176-200 2 units 201-225 3 units 226-250 4 units 251-275 5 units 276-300 6 units 301-325 7 units 326-350 8 units 351-375 9 units 376-400 10 units >400 12 units Check blood sugars before meals and at bedtime. Use correction factor only before meals. Vancomycin (Vancomycin) 125 Mg Capsule 125 MG PO QID Take 1 capsule by mouth 4 times daily for 11 days. Prescribed by: ALEISHA RAMACHANDRAN, DO Additional med instructions START 1 capsule of Vancomycin by mouth 4 times daily. This is a 14 day course of antibiotic and based on the number of doses you have already received, you will need to take 11 more days of antibiotics. Continue your previous home medications. Followup Plan Disposition: Home Follow-up plan Please call the [facility] on 11/28/16 to schedule an appointment for follow up of this hospitalization, to be seen on 12/05/16. If you are able to establish care with the health care provider your girlfriend has been seen by, you may follow up with them instead if you so desire so long as it is in less than 2 weeks; if you see them instead, please cancel any appointment you may have with the residency clinic. Discharge Diet: Diabetic Discharge Activity: No restrictions Follow-up Provider: [facility] Follow-up with PCP in: Other (10 days) Time spent 40 minutes Attending Statement The patient was seen and examined together with Dr. Ramachandran on 11/26/2016 and I agree with the history, exam and plan as outlined in the note above. copies to: Aleisha Ramachandran Rachel M DO Nov 26, 2016 18:06 Reyes Carreon MD Nov 27, 2016 12:35
== END 2016-11-26 11:40 | disposition home or self-care (01) | DRG 371 ==
LOC: SED 19:46 → OFED 11-23 04:44 → OBSVTOIN 11-23 04:44 → PCC 11-23 08:44 → CCU 11-23 08:56 → PCC 11-24 07:30 → MPC 11-24 11:19
PROVIDERS: ADMIT Specialist; ATTEND Specialist
PROC: 4A033R1 Measurement of Arterial Saturation, Peripheral, Percutaneous Approach (ICD-10-PCS; principal; 2016-11-23)
DX: A04.7 Enterocolitis due to Clostridium difficile (principal); E10.10 Type 1 diabetes mellitus with ketoacidosis without coma; E86.0 Dehydration; Z95.5 Presence of coronary angioplasty implant and graft; Z79.82 Long term (current) use of aspirin

== ENCOUNTER 2017-05-09 12:12 | Emergency (ER) | payer OTHER ==
[~2017-05-09 12:12] MED LIST: ARGI500T PO; ASPI-973 PO; ASTR1POW MC; INSU100I18 SUBQ; INSU100V7 SUBQ; VANC125C3 PO
[2017-05-09 12:14] VITALS: BP 129/80; PULSE 76; RESP 16; O2SAT 99
[2017-05-09 12:51] LABS: BASOPHILS % (AUTO) 0.7 % (0-3); EOSINOPHILS % (AUTO) 5.9 % (0-5); MONOCYTES % (AUTO) 7.5 % (4-12); Mean Corpuscular Hemoglobin 31.5 pg (27.0-35.0); Mean Corpuscular Volume 93.2 fL (81-100); NEUTROPHILS % (AUTO) 56.4 % (40-74); Platelet Count 256 bil/L (150-400)
--- NOTE | 2017-05-09 13:08 | ED.REPORT ---
HPI-Altered Mental Status Date of Service May 09, 2017 ED Provider: Oskar Francois MD Patient is a 61 year old male with a history of diabetes, hypertension and [place] with stent placement who presents to the ED due to an episode of confusion this morning. Per the patient's , he was confused to the date and what was happening. Patient complains of feeling lightheaded, fatigued, weakness and increased urination. He denies dysuria, hematuria, vomiting, diarrhea, nausea or any recent falls or traumas. Patient currently takes daily ASA. Nursing Notes Stated Complaint: TIRED,SLOW,PAIN Chief Complaint: General Complaint Nursing Notes Reviewed: Yes Allergies: Coded Allergies: Sulfa (Sulfonamide Antibiotics) (Verified Allergy, Unknown, 05/09/17) Scheduled Arginine (Arginine) 500 Mg Tablet 500 MG PO DAILY Aspirin (Aspirin) 81 Mg Tablet 243 MG PO DAILY Astragalus Root (Astragalus Root) 1 Gm Powder 1 GM MC DAILY Insulin Glargine (Lantus U100 Insulin Vial) 100 Unit/Ml Vial 15-20 UNIT SUBQ HS Insulin Lispro (HumaLOG U100 Insulin Pen) 100 Unit/1 Ml Insuln.pen 15-20 UNIT SUBQ ACHS Blood Sugar Lispro Correction <151 0 units 151-175 1 unit 176-200 2 units 201-225 3 units 226-250 4 units 251-275 5 units 276-300 6 units 301-325 7 units 326-350 8 units 351-375 9 units 376-400 10 units >400 12 units Check blood sugars before meals and at bedtime. Use correction factor only before meals. Vancomycin (Vancomycin) 125 Mg Capsule 125 MG PO QID Take 1 capsule by mouth 4 times daily for 11 days. General Time Seen by MD: 12:28 Chief Complaint Confused Hx Obtained From: Patient, Spouse Arrived By: Walk-in Sudden in Onset?: Yes Onset Occurred: 1 - 4 hours ago Progression since Onset: Resolved Severity: Current: No pain currently Recent Healthcare: Recent doctor visit, Recent hospitalization Similar Sx Previous: No Risk Factors NIH Stroke Scale Level of Consciousness: Alert and responsive (0) Ask Month & Age: Both questions right (0) Open/Close Eyes/Hand Director Workers Compensation: Performs both tasks (0) Horizontal EO Movements: None (0) Visual Ruff: No visual loss (0) Facial Palsy: Normal symmetry (0) Right Arm Motor Drift (10s): No drift 10 sec (0) Left Arm Motor Drift (10s): No drift 10 sec (0) Right Leg Motor Drift (5s): No drift 5 sec (0) Left Leg Motor Drift (5s): No drift 5 sec (0) Limb Ataxia FNF/Heel-Gonzalez: No ataxia (0) Sensation (Arms/Legs/Face): No sensory loss (0) Language Aphasia: No aphasia, normal (0) Dysarthria: No dysarthria, normal (0) Extinction/Inattention: No exctinct/inattent (0) NIHSS Score: 0 Time NIHSS Performed: 13:29 Date NIHSS Performed: May 09, 2017 Past Medical History Past Medical History Diabetes type 1 enlarged prostate chronic shoulder pain [place] Reports: Hypertension Past Surgical History Right hip surgery stent placement bilateral meniscus repair Smoking History Unknown if Ever Smoker Social History Other Social History: Good social support, Ambulatory Status Independent Review of Systems Constitutional: Reports: Fatigue, Weakness - generalized, Denies: Chills, Fever Respiratory: Denies: Non-productive cough, Shortness of breath GI: Denies: Diarrhea, Nausea, Vomiting Neurologic: Reports: Confusion, Lightheaded Complete sys rev & neg: except as marked. Male: Reports Urination increased, Denies Dysuria, Denies Hematuria Physical Exam Initial Vital Signs Vital Signs (First) Date Time Temp Pulse Resp B/P Pulse Ox O2 Delivery O2 Flow Rate FiO2 05/09/17 12:14 35.6 76 16 129/80 99 Room Air Initial VS: Reviewed General/Constitutional: Awake, Alert, No acute distress Head / Eyes: Atraumatic, Normocephalic, PERRL, EOMI Neck: Atraumatic, Supple Respiratory / Chest: Atraumatic, Breath sounds NL, Breath sounds = bilat, No respiratory distress Cardiovascular: Heart rate NL, Regular rhythm, Heart sounds NL Neurologic: Oriented X3, Speech NL, No motor deficits, No sensory deficits, CN II - XII intact Abdomen: Atraumatic, Soft, Non-tender Skin: Atraumatic, Color NL, No rash, Warm, Dry Psychiatric: Affect NL, Mood NL Interpretation & Diagnostics Lab Results Interpretation Result Diagram: 05/09/17 1230 05/09/17 1230 Test 05/09/17 12:30 05/09/17 14:17 White Blood Count 6.8th/mm3 (3.8-10.1) Red Blood Count 4.41mil/mm3 (4.40-5.80) Hemoglobin 13.9g/dL (13.8-17.2) Hematocrit 41.1% (41.0-50.0) Mean Corpuscular Volume 93.2fL (81-100) Mean Corpuscular Hemoglobin 31.5pg (27.0-35.0) Mean Corpuscular Hemoglobin Concent 33.8% (32.0-37.0) Red Cell Distribution Width 13.1% (12.3-15.4) Platelet Count 256bil/L (150-400) Neutrophils (%) (Auto) 56.4% (40-74) Lymphocytes (%) (Auto) 29.4% (14-46) Monocytes (%) (Auto) 7.5% (4-12) Eosinophils (%) (Auto) 5.9% (0-5) Basophils (%) (Auto) 0.7% (0-3) Sodium Level 140mEq/L (134-144) Potassium Level 4.3mEq/L (3.5-5.2) Chloride Level 102mEq/L (97-108) Carbon Dioxide Level 24mmol/L (18-29) Blood Urea Nitrogen 16mg/dL (8-27) Creatinine 0.65mg/dL (0.76-1.27) Estimat Glomerular Filtration Rate 132mL/min (>59) Glucose Level 213mg/dL (60-99) Lactic Acid Level 1.9mmol/L (0.4-2.0) Calcium Level 9.6mg/dL (8.5-10.1) Magnesium Level 2.0mg/dL (1.6-2.6) Total Bilirubin 0.4mg/dL (0.0-1.2) Aspartate Amino Transf (AST/SGOT) 22U/L (0-50) Alanine Aminotransferase (ALT/SGPT) 23U/L (0-44) Alkaline Phosphatase 124U/L (25-160) Troponin T < 0.010ug/L (0.0-0.011) Total Protein 7.5g/dL (6.4-8.4) Albumin 3.8g/dL (3.4-5.0) Urine Color Straw (YELLOW) Urine Appearance Clear (CLEAR,HAZY) Urine pH 6.5 (5.0-8.0) Urine Specific [place] 1.015 (1.003-1.035) Urine Protein Negativemg/dL (NEG,TRACE) Urine Glucose (UA) >1000mg/dL (NEGATIVE) Urine Ketones Negativemg/dL (NEGATIVE) Urine Occult Blood Negative (NEGATIVE) Urine Nitrite Negative (NEGATIVE) Urine Bilirubin Negative (NEGATIVE) Urine Urobilinogen Normalmg/dL (NORMAL) Urine Leukocyte Esterase Negative (NEGATIVE) Urine RBC 0-2/hpf (0-2) Urine WBC 0-5/hpf (0-5) Urine Epithelial Cells Occasional/hpf (NONE-MOD) Urine Crystals None seen (NONE SEEN) Urine Bacteria None/hpf (NONE-FEW) Urine Hyaline Casts None/lpf (NONE) Urine Granular Casts None seen (NONE SEEN) Urine Waxy Casts None seen (NONE SEEN) Urine Red Blood Cell Casts None seen (NONE SEEN) Urine White Blood Cell Casts None seen (NONE SEEN) Urine Mucus None seen (None Seen) Urine Trichomonas None seen (NONE SEEN) Urine Yeast None (NONE SEEN) Urinalysis Comment None Urine Culture Reflexed Not indicated ECG Interpretation Time: 12:52 Interpreted by: ED physician Normal ECG Interpretation: Normal rate (68), Normal sinus rhythm X-Ray Chest Interpretation Chest Xray Interpretation: IMPRESSION: Negative chest. No acute cardiopulmonary process is evident. Dictated by: Vinny Walker M.D. on 05/09/2017 at 12:12 Approved by: Vinny Walker M.D. on 05/09/2017 at 12:15 View: Portable, 1 view Interpretation / Wet Read by: Interpret - Radiologist Re-Eval/Medical Decision Med Decision/Clinical Course MMSE reveals 28 out of 30. Re-Evaluation/Progress : Time of Eval: 14:55 Re-Evaluation/Progress Note: Discussed results and plan for discharge. Patient understands and agrees to the plan. All questions were addressed. Counseled Regarding: Diagnosis, Lab results, Need for follow-up, When/why to return to ED Patient Discharge & Departure Impression: Primary Impression: Dehydration Additional Impression: Confusion Disposition: Home Discharge Condition All VS Reviewed: Yes Condition: Stable Patient Instructions: Dehydration (ED) Additional Instructions: Your labs were normal and reassuring. It does not appear that you had a stroke today. It is possible that you were dehydrated. Call your primary care physician today to schedule a follow up appointment for further evaluation. Return to the emergency department if you develop any new or concerning symptoms including difficulty speaking or one sided weakness. Referrals: CAMERON LOPEZ Rachel M DO Scribe Attestation Portions of this note were transcribed by Taniya Vazquez. I, Dr. Francois personally performed the history, physical exam and medical decision-making; I reviewed and confirmed the accuracy of the information in the transcribed note. Signed by: Rossy Membreno, 05/09/17 and 1315 copies to: CAMERON OLPEZ DO; Aleisha Ramachandran Kirk H MD May 09, 2017 13:08 Nelly Vazquez May 09, 2017 13:17
[2017-05-09 13:14] LABS: TROPONIN T < 0.010 ug/L (0.0-0.011)
--- NOTE | 2017-05-09 13:16 | DRSVH ---
PROCEDURE: X-RAY CHEST ONE VIEW, PORTABLE ([id number]) INDICATIONS: diabetic TECHNIQUE: One view of the chest was acquired. COMPARISON: [facility], CR, XR CHEST 1VW (PORTABLE), 11/22/2016, 22:54. FINDINGS: Surgical changes and devices: The Lungs and pleura: No pleural effusions or pneumothorax. Lungs are clear. Mediastinum: Mediastinal contours appear normal. Heart size is normal. Bones and chest wall: No suspicious bony lesions. The bone mineralization is decreased. Overlying soft tissues appear unremarkable. IMPRESSION: Negative chest. No acute cardiopulmonary process is evident. Dictated by: Vinny Walker M.D. on 05/09/2017 at 12:12 Approved by: Vinny Walker M.D. on 05/09/2017 at 12:15
[2017-05-09] MEDS ORDERED: 0.9% Sodium Chloride 1,000 ML IV ONE (14:30)
[2017-05-09 14:48] LABS: APPEARANCE,URINE CLEAR (CLEAR,HAZY); COLOR,URINE STRAW (YELLOW); OCCULT BLOOD,URINE NEGATIVE (NEGATIVE); PH,URINE 6.5 (5.0-8.0); UROBILINOGEN,URINE NORMAL (NORMAL)
== END 2017-05-09 15:26 | disposition home or self-care (01) ==
LOC: SED 12:12
DX: R41.0 Disorientation, unspecified (principal); E86.0 Dehydration; R07.9 Chest pain, unspecified; I11.9 Hypertensive heart disease without heart failure; I25.2 Old myocardial infarction; E11.59 Type 2 diabetes mellitus with other circulatory complications; Z79.4 Long term (current) use of insulin; Z79.82 Long term (current) use of aspirin; Z95.5 Presence of coronary angioplasty implant and graft; Z88.2 Allergy status to sulfonamides
CPT/HCPCS: 36415; 71010; 80053; 81000; 82948; 83605; 83735; 84484; 85025; 93005; 96360; 99285; J7030